=== PATIENT | male | born 1980 | race Caucasian/White ===

== ENCOUNTER 2016-05-25 16:20 | Emergency (ER) | payer BC, MEDICAID ==
--- NOTE | 2016-05-25 16:34 | Emergency Department Record ---
History of Present Illness - General Chief complaint: Extremity Problem Stated complaint: R RING FINGER INJURY Time Seen by Provider: 05/25/16 16:28 Source: Patient Mode of Arrival: Ambulatory Limitations: No limitations - History of Present Illness Initial comments: 36 yo male presents after injuring his right ring finger yesterday. He was moving a hutch and a door slammed the finger. He has bruising and pain at the tip. No bleeding. No nail was not injured. He is right handed. MD Complaint: Extremity pain Onset/Timin -: Days(s) Location: Right, Hand History of Same: No Radiation: Distal Severity scale (1-10): 4 Quality: Sharp Consistency: Intermittent Improves with: Nothing Worsens with: Nothing Associated Symptoms: Denies other symptoms - Related Data Home Medications Medication Instructions Recorded Confirmed Last Taken Insulin Aspart Protam & Aspart 20 unit SQ QPM 04/06/16 05/25/16 04/06/16 [Novolog Mix 70/30 Vial] Insulin Aspart Protam & Aspart 35 unit SQ QAM 04/06/16 05/25/16 04/06/16 [Novolog Mix 70/30 Vial] Insulin Regular, Human [Humulin R] 10 unit SQ BID 04/06/16 05/25/16 04/06/16 Allergies Allergy/AdvReac Type Severity Reaction Status Date / Time No Known Drug Allergies Allergy Verified 05/25/16 16:29 Travel Screening - Travel/Exposure Within Last 30 Days Have you traveled within the last 30 days?: No Review of Systems Constitutional: Denies: Chills, Fever, Malaise Eyes: Denies: Eye discharge, Eye pain, Photophobia ENT: Denies: Congestion, Throat pain Respiratory: Denies: Cough Cardiovascular: Denies: Chest pain, Palpitations, Syncope Endocrine: Denies: Fatigue Gastrointestinal: Denies: Abdominal pain, Diarrhea, Nausea, Vomiting Musculoskeletal: Reports: Joint swelling Skin: Reports: Bruising Neurological: Denies: Headache Psychiatric: Denies: Anxiety Hematological/Lymphatic: Denies: Easy bleeding, Easy bruising Past Medical History - SOCIAL HISTORY Smoking Status: Current every day smoker Alcohol Use: None Drug Use: None - RESPIRATORY Hx Respiratory Disorders: No - CARDIOVASCULAR Hx Cardio Disorders: No - NEURO Hx Neuro Disorders: No - GI Hx GI Disorders: No - Hx Genitourinary Disorders: No - ENDOCRINE Hx Endocrine Disorders: Yes Hx Diabetes: Yes - MUSCULOSKELETAL Hx Musculoskeletal Disorders: Yes Comment:: skin abscesses - PSYCH Hx Psych Problems: No - HEMATOLOGY/ONCOLOGY Hx Hematology/Oncology Disorders: No Family Medical History Any Significant Family History?: Yes Hx Diabetes: Grandparents Hx Heart Disease: Father Physical Exam - General General Appearance: Alert, Oriented x3, Cooperative, No acute distress - Head Head exam: Atraumatic, Normal inspection - Eye Eye exam: Normal appearance - ENT ENT exam: Normal exam - Neck Neck exam: Normal inspection - Cardiovascular Peripheral Pulses: 2+: Radial (R) - Rectal Rectal exam: Deferred - exam: Deferred - Extremities Extremities exam: Full ROM, Joint swelling, Normal capillary refill, Tenderness. negative: Normal inspection Image of Hand: 1 - mild swelling, intact skin, bruising, soft to touch 2 - tender, nail intact, no subungual hematoma - Neurological Neurological exam: Alert, Normal gait, Oriented X3 - Psychiatric Psychiatric exam: Normal affect, Normal mood - Skin Skin exam: Other (bruising). negative: Cyanosis, Diaphoretic, Intact, Mottled Course Vital Signs 05/25/16 16:24 Temperature 98.4 F Pulse Rate 99 H Respiratory 18 Rate Blood Pressure 136/88 Pulse Ox 99 - Reevaluation(s) Reevaluation #1: The patient was seen and examined XR ordered The area is soft but bruised. The skin is intact. No tense to palpation. Nail is intact 05/25/16 16:32 Reevaluation #2: The prelim XR read by me was negative for acute process The area will be treated with supportive care. 05/25/16 16:59 Disposition Disposition: Discharge Clinical Impression: Finger contusion Qualifiers: Encounter type: initial encounter Finger: ring finger Damage to nail status: without damage Laterality: right Qualified Code(s): S60.041A - Contusion of right ring finger without damage to nail, initial encounter Disposition: Home, Self-Care Condition: (1) Good Instructions: Jammed Finger (ED) Additional Instructions: Return if worse, increased swelling, red, drainage or new concerns. Recheck the area in 4-5 days with your doctor Forms: Patient Portal Access Time of Disposition: 17:00
== END 2016-05-25 17:09 | disposition home or self-care (01) ==
LOC: ER 16:20
DX: S60.041A Contusion of right ring finger without damage to nail, initial encounter (principal); W22.8XXA Striking against or struck by other objects, initial encounter
CPT/HCPCS: 73140; 99283

== ENCOUNTER 2016-06-03 22:26 | Emergency (ER) | payer BC, MEDICAID ==
[2016-06-03] MEDS ORDERED: 0.9 % SODIUM CHLORIDE 1,000 ML BAG IV ONE ×2 (22:48→22:51)
--- NOTE | 2016-06-03 22:51 | Emergency Department Record ---
History of Present Illness - General Chief complaint: Fatigue and Weakness Stated complaint: FATIGUE Time Seen by Provider: 06/03/16 22:48 Source: Patient Mode of Arrival: Ambulatory Limitations: No limitations - History of Present Illness Initial comments: 36 yo male presents feeling dehydrated and fatigued. He walked about 12 miles and started to feel week and shaky. No syncope. No LOC. No injury. He is a diabetic. He checked his sugar this morning and it was 85. No other recent illness. MD Complaint: Generalized weakness Onset/Timin -: Hour(s) Location: Generalized Severity: Mild Severity scale (1-10): 9 Quality: Other Consistency: Other Improves with: Rest Worsens with: Movement Associated Symptoms: Denies other symptoms, Other - Rd Coma Scale Eye Response: (4) Open spontaneously Motor Response: (6) Obeys commands Verbal Response: (5) Oriented Rd Total: 15 - Related Data Home Medications Medication Instructions Recorded Confirmed Last Taken Insulin Aspart Protam & Aspart 20 unit SQ QPM 04/06/16 05/25/16 04/06/16 [Novolog Mix 70/30 Vial] Insulin Aspart Protam & Aspart 35 unit SQ QAM 04/06/16 05/25/16 04/06/16 [Novolog Mix 70/30 Vial] Insulin Regular, Human [Humulin R] 10 unit SQ BID 04/06/16 05/25/16 04/06/16 Allergies Allergy/AdvReac Type Severity Reaction Status Date / Time No Known Drug Allergies Allergy Verified 05/25/16 16:29 Travel Screening - Travel/Exposure Within Last 30 Days Have you traveled within the last 30 days?: No - Travel/Exposure Within Last Year Have you traveled outside the [place] in the last year?: No - Additonal Travel Details Have you been exposed to anyone with a communicable illness?: No - Travel Symptoms Symptom Screening: None Review of Systems Constitutional: Reports: Malaise, Weakness. Denies: Chills, Fever Eyes: Denies: Eye discharge ENT: Denies: Congestion, Ear pain, Throat pain Respiratory: Denies: Cough, Dyspnea, Stridor, Wheezes Cardiovascular: Denies: Chest pain, Palpitations, Syncope Endocrine: Denies: Fatigue Gastrointestinal: Denies: Abdominal pain, Diarrhea, Nausea, Vomiting Genitourinary: Denies: Dysuria, Frequency, Hematuria, Retention Musculoskeletal: Denies: Arthralgia, Back pain, Joint swelling, Myalgia, Neck pain Skin: Denies: Bruising, Change in color, Rash Neurological: Denies: Confusion, Headache Psychiatric: Denies: Anxiety Hematological/Lymphatic: Denies: Blood Clots, Easy bleeding, Easy bruising, Swollen glands Past Medical History - SOCIAL HISTORY Smoking Status: Current every day smoker Alcohol Use: None Drug Use: None - RESPIRATORY Hx Respiratory Disorders: No - CARDIOVASCULAR Hx Cardio Disorders: No - NEURO Hx Neuro Disorders: No - GI Hx GI Disorders: No - Hx Genitourinary Disorders: No - ENDOCRINE Hx Endocrine Disorders: Yes Hx Diabetes: Yes (TYPE I) - MUSCULOSKELETAL Hx Musculoskeletal Disorders: Yes Comment:: skin abscesses - PSYCH Hx Psych Problems: No - HEMATOLOGY/ONCOLOGY Hx Hematology/Oncology Disorders: No Family Medical History Any Significant Family History?: Yes Hx Diabetes: Grandparents Hx Heart Disease: Father Physical Exam - General General Appearance: Alert, Oriented x3, Cooperative, No acute distress Limitations: No limitations - Head Head exam: Normal inspection - Eye Eye exam: Normal appearance, PERRL. negative: Conjunctival injection - ENT ENT exam: Normal exam, Mucous membranes moist, Normal orophraynx Ear exam: Normal external inspection Nasal Exam: Normal inspection Mouth exam: Normal external inspection Teeth exam: Normal inspection Throat exam: Normal inspection - Neck Neck exam: Normal inspection, Full ROM. negative: Tenderness - Respiratory Respiratory exam: Normal lung sounds bilaterally. negative: Respiratory distress - Cardiovascular Cardiovascular Exam: Regular rate, Normal rhythm, Normal heart sounds Peripheral Pulses: 2+: Radial (R), Radial (L) - GI/Abdominal GI/Abdominal exam: Soft. negative: Distended, Rigid, Tenderness - Rectal Rectal exam: Deferred - exam: Deferred - Extremities Extremities exam: Normal inspection, Full ROM, Normal capillary refill. negative: Tenderness - Back Back exam: Reports: Normal inspection, Full ROM. Denies: Muscle spasm, Rash noted, Tenderness - Neurological Neurological exam: Alert, Normal gait, Oriented X3 - Psychiatric Psychiatric exam: Normal affect, Normal mood. negative: Agitated, Anxious - Skin Skin exam: Dry, Intact, Normal color, Warm. negative: Erythema Course - Reevaluation(s) Reevaluation #1: The labs were reviewed His CR was 1.5 and BUN was 24 He will be well hydrated and reassessed. Glucose was 55 He was given juice and PBandJ 06/03/16 23:07 06/03/16 23:08 Reevaluation #2: The repeat labs were reviewed Improved after hydration. Will DC with recommendation to follow up in the [facility] 06/04/16 00:58 Medical Decision Making - Lab Data Result diagrams: 06/03/16 02:45 06/04/16 00:42 Disposition Disposition: Discharge Clinical Impression: Dehydration, Renal insufficiency Disposition: Home, Self-Care Condition: (1) Good Instructions: Dehydration (ED) Additional Instructions: Stay very well hydrated the next several days Return immediately if you are concerned about your hydration, or any new symptoms that develop. Referrals: JULIANA WHITTAKER M.D. [MEDICAL DOCTOR] - Forms: Patient Portal Access Time of Disposition: 01:00
[2016-06-03 22:56] LABS: BASO % 0.3 % (0-6); EOS % 0.1 % (0-6); GRAN % 72.3 % (47-80); HEMOGLOBIN 15.4 gm/dl (14.0-18.0); LYMPH % 15.9 % (16-45); MEAN CELL VOLUME 97.1 fl (81-97); MEAN CORPUSCULAR HEMOGLOBIN 31.8 pg (27-33); MEAN CORPUSCULAR HGB CONC 32.8 g/dl (32-36); MEAN PLATELET VOLUME 11.5 fl (7.4-10.4); MONO % 11.4 % (0-9); PLATELET COUNT 189 K/uL (130-400); RED BLOOD COUNT 4.84 M/uL (4.40-5.70); RED CELL DISTRIBUTION WIDTH 14.1 % (11.5-14.5); WHITE BLOOD COUNT W/O DIFF 13.4 K/uL (4.2-12.2)
[2016-06-03 23:05] LABS: ANION GAP 15.7 (7-16); CARBON DIOXIDE 27.3 mmol/L (22-30); CREATININE 1.5 mg/dL (0.66-1.25)
[2016-06-03] MEDS ORDERED: ACETAMINOPHEN 500 MG TABLET PO ONE (23:26)
[2016-06-04] MEDS ORDERED: 0.9 % SODIUM CHLORIDE 1,000 ML BAG IV ONE (00:15)
[2016-06-04 00:55] LABS: ANION GAP 10.8 (7-16); BLOOD UREA NITROGEN 21 mg/dL (9-20); CARBON DIOXIDE 25.2 mmol/L (22-30); CREATININE 1.2 mg/dL (0.66-1.25); EST GLOMERULAR FILTRATION RATE > 60 ml/min; GLUCOSE,RANDOM 231 mg/dL (70-110)
== END 2016-06-04 01:19 | disposition home or self-care (01) ==
LOC: ER 22:26
DX: E86.0 Dehydration (principal); N28.9 Disorder of kidney and ureter, unspecified; E10.9 Type 1 diabetes mellitus without complications; Z79.4 Long term (current) use of insulin
CPT/HCPCS: 36416; 80048; 82948; 85025; 96360; 96361; 99284; J7030